=== PATIENT | male | born 1975 | race Caucasian/White ===

== ENCOUNTER 2017-03-04 14:01 | Emergency (ER) | payer OTHER ==
[~2017-03-04] VITALS: Ht 182.9 cm; Wt 102.1 kg
[~2017-03-04 14:01] MED LIST: ACETAMINOPHEN-1 EAC1 PO; ALEVE220 MG PO; APAP500 PO; BACTRIM DS TAB1 EACH PO; CIPRO500 MG PO; CIPROFLOXACIN500 M1 PO; CLEOCIN HCL150 MG PO; CLINDAMYCIN HC150 MG PO; CYCLOBENZAPRINE5 MG PO; DOXYCYCLINE 10100 MG PO; FLAGYL500 MG PO; HYDROCODONE-AP1 EAC6 PO; IBUPROFEN 800800 M1 PO; IBUPROFEN 800800 MG PO; MOBIC7.5 MG PO; NORCO 5-325 TA1 EAC1 PO; NORCO 5-325 TA1 EACH PO; PERCOCET PO; PHENAZOPYRIDIN200 M2 PO; PREDNISONE 20 M20 MG PO; ROBAXIN 750 MG750 M1 PO; ZOFRAN4 MG PO
[2017-03-04 14:28] LABS: ABSOLUTE BASOPHILS 0.1 thou/uL (0.0-0.2); ABSOLUTE EOSINOPHILS 0.4 thou/uL (0.0-0.7); ABSOLUTE LYMPHOCYTES 3.7 thou/uL (0.8-5.3); ABSOLUTE MONOCYTES 0.8 thou/uL (0.0-1.2); ABSOLUTE NEUTROPHILS 4.1 thou/uL (1.6-8.1); BASOPHILS 1.1 %; EOSINOPHILS 3.9 %; HEMATOCRIT 46.1 % (42.0-52.0); HEMOGLOBIN 15.6 gm/dL (14.0-18.0); LYMPHOCYTES 40.8 %; MCH 30.5 pg (26.0-34.0); MCHC 33.9 g/dL (28.0-37.0); MPV 8.9 fl. (7.2-11.1); NUCLEATED RBCS 0 /100WBC; PLATELET COUNT* 182 thou/uL (150-400); POLYS 45.2 %; RBC 5.12 mil/uL (4.50-6.00); RDW-CV 14.1 % (10.5-14.5); WBC 9.1 thou/uL (4.0-11.0)
[2017-03-04] MEDS ORDERED: HYDROCODON-ACE1 EAC7 PO (14:32)
[2017-03-04 14:36] LABS: CALCIUM 9.1 mg/dL (8.5-10.1)
[2017-03-04 14:40] LABS: TOTAL BILIRUBIN 0.6 mg/dL (<0.1-1.0); TOTAL PROTEIN 7.6 g/dL (6.4-8.2)
[2017-03-04 14:59] LABS: URINE BILIRUBIN NEGATIVE (Negative); URINE BLOOD 3+ (Negative); URINE CLARITY CLEAR; URINE COLOR YELLOW; URINE GLUCOSE-RANDOM NEGATIVE (Negative); URINE KETONES NEGATIVE (Negative); URINE LEUKOCYTES-REFLEX NEGATIVE (Negative); URINE NITRITE-REFLEX NEGATIVE (Negative); URINE PROTEIN NEGATIVE (Negative); URINE SPECIFIC GRAVITY 1.025 (1.005-1.030)
[2017-03-04 15:10] LABS: BACTERIA-REFLEX None Seen /HPF (None Seen); CASTS None Seen /LPF (None Seen); CRYSTALS None Seen /LPF (None Seen); MUCUS 0-3 Light strn/LPF (None Seen); SQUAMOUS NONE SEEN /LPF (0-3); URINE WBC-REFLEX None Seen /HPF (0-5)
[2017-03-04] MEDS ORDERED: TRAMADOL 50 MG50 MG PO (15:34)
[2017-03-04] MEDS ORDERED: HYDROCODONE-AP1 EAC6 PO (17:00)
[2017-03-04 17:24] VITALS: BP 132/88
== END 2017-03-04 17:25 | disposition home or self-care (01) ==
LOC: M.ERS 14:01
PROVIDERS: Physician Assistant
DX: M16.11 Unilateral primary osteoarthritis, right hip (principal); M65.251 Calcific tendinitis, right thigh; R31.9 Hematuria, unspecified; K40.90 Unilateral inguinal hernia, without obstruction or gangrene, not specified as recurrent; F10.99 Alcohol use, unspecified with unspecified alcohol-induced disorder; Z87.442 Personal history of urinary calculi; Z88.1 Allergy status to other antibiotic agents; Z88.6 Allergy status to analgesic agent; Z88.0 Allergy status to penicillin; Z91.010 Allergy to peanuts; Z87.891 Personal history of nicotine dependence

== ENCOUNTER 2017-03-11 12:47 | Emergency (ER) | payer OTHER ==
[~2017-03-11] VITALS: Ht 182.9 cm; Wt 115.7 kg
[~2017-03-11 12:47] MED LIST changes: +HYDROCODON-ACE1 EAC7 PO; +TRAMADOL 50 MG50 MG PO
[2017-03-11 13:28] VITALS: BP 141/96
== END 2017-03-11 14:15 | disposition home or self-care (01) ==
LOC: M.ERS 12:47
DX: K02.9 Dental caries, unspecified (principal)

== ENCOUNTER 2017-05-04 11:34 | Emergency (ER) | payer OTHER ==
[~2017-05-04] VITALS: Ht 182.9 cm; Wt 104.3 kg
[2017-05-04] MEDS ORDERED: ALEVE220 MG PO (12:02)
[2017-05-04] MEDS ORDERED: FLEXERIL PO (13:19)
[2017-05-04 13:57] VITALS: BP 141/91
== END 2017-05-04 13:59 | disposition home or self-care (01) ==
LOC: M.ERS 11:34
DX: S20.212A Contusion of left front wall of thorax, initial encounter (principal); Z87.442 Personal history of urinary calculi; Z88.1 Allergy status to other antibiotic agents; Z88.6 Allergy status to analgesic agent; Z88.0 Allergy status to penicillin; Z91.010 Allergy to peanuts; Z87.891 Personal history of nicotine dependence; W22.8XXA Striking against or struck by other objects, initial encounter; Y93.89 Activity, other specified; Y92.096 Garden or yard of other non-institutional residence as the place of occurrence of the external cause; Y99.8 Other external cause status